=== PATIENT | female | born 1965 | race Caucasian/White ===

== ENCOUNTER 2016-05-31 06:23 | Emergency (ER) | payer BC ==
[2016-05-31 06:34] VITALS: BP 134/83
--- NOTE | 2016-05-31 07:07 | ED ---
Upper Extremity Pain - HPI Summary HPI Summary: Patient presents after slipping on the last few carpeted stairs in her home, and catching herself on an outstretched right hand. She had immediate pain in the wrist and forearm. She took Naproxen with mild relief. She denies previous injury to this extremity. No N/T, bruising or obvious deformity. Her pain is worst with pronation and supination. - History of Current Complaint Chief Complaint: EDExtremityUpper Stated Complaint: FALL/RIGHT ARM PAIN Time Seen by Provider: 05/31/16 06:42 Hx Obtained From: Patient, Family/Senior Gl Accountant Hx Last Menstrual Period: 01/16/2013 Mechanism Of Injury: Fall From A Standing Position Onset/Duration: Started Hours Ago - 1 Timing: Constant Severity Initially: Severe Severity Currently: Severe Pain Location: Forearm Character: Sharp, Aching Aggravating Factor(s): Movement Alleviating Factor(s): Rest Associated Signs & Symptoms: Positive: Negative Related History: Dominant Hand Right - Allergies/Home Medications Allergies/Adverse Reactions: Allergies Allergy/AdvReac Type Severity Reaction Status Date / Time Gluten Meal Allergy See Comment Verified 04/05/16 14:54 Wheat Extract Allergy See Comment Verified 04/05/16 14:54 MOLD Allergy Intermediate Eyes Uncoded 04/05/16 14:54 Itchy/Swollen/Red/Watery PMH/Surg Hx/FS Hx/Imm Hx Endocrine/Hematology History: Denies: Hx Diabetes, Hx Thyroid Disease, Hx Anemia Cardiovascular History: Reports: Hx Hypertension - ON MEDICATION Denies: Hx Hypercholesterolemia, Hx Pacemaker/ICD, Other Cardiovascular Problems/Disorders Respiratory History: Reports: Hx Asthma - MILD ASTHMA RELATED ENVIRONMENTAL ALLERGY Denies: Hx Chronic Obstructive Pulmonary Disease (COPD), Other Respiratory Problems/Disorders GI History: Reports: Hx Irritable Bowel - IN THE PAST - OK WITH DIET, Other GI Disorders - CELIAC DISEASE Denies: Hx Ulcer History: Denies: Hx Dialysis, Hx Renal Disease Musculoskeletal History: Reports: Other Musculoskeletal History - INJURY TO SHOULDER, POSSIBLE ROTATOR CUFF TEAR- STATES WAS TREATED WITH PT Denies: Hx Osteoporosis, Hx Tendonitis Sensory History: Reports: Hx Contacts or Glasses - GLASSES Denies: Hx Hearing Aid Opthamlomology History: Reports: Hx Contacts or Glasses - GLASSES Neurological History: Reports: Hx Headaches - TENSION AND SINUS HEADACHES, Hx Migraine - OK AFTER DIET CHANGE Denies: Other Neuro Impairments/Disorders Psychiatric History: Reports: Hx Anxiety - ON MEDICATION FOR, Hx Depression - ON MEDICATION FOR Denies: Hx Panic Disorder - UNUSUAL CURRENT BEHAVIOR - Cancer History Cancer Type, Location and Year: LEFT BREAST CA (TREATED WITH LUMPECTOMY AND LYMPH NODE REMOVAL, CHEMO AND RADIATION) Hx Chemotherapy: No Hx Radiation Therapy: No - Surgical History Surgery Procedure, Year, and Place: scheduled for umbilical hernia repair [place] teeth removal, TONSILLECTOMY, breast CA, Left lymph nodes removed, LUMPECTOMYS [facility], [facility] Hx Anesthesia Reactions: No Infectious Disease History: No Infectious Disease History: Reports: Hx Shingles Denies: Hx Clostridium Difficile, Hx Hepatitis, Hx Human Immunodeficiency Virus (HIV), Hx Tuberculosis, Hx Known/Suspected VRE, Hx Known/Suspected VRSA, History Other Infectious Disease, Traveled Outside the in Last 30 Days - Family History Known Family History: Positive: Cardiac Disease - Social History Occupation: Employed Full-time Lives: With Family Alcohol Use: Occasionally Alcohol Amount: 1 GLASS OF WINE DAILY Substance Use Type: Reports: None Smoking Status (MU): Never Smoked Tobacco Have You Smoked in the Last Year: No Review of Systems Positive: Myalgia, Decreased ROM Negative: Bruising Negative: Paresthesia, Numbness All Other Systems Reviewed And Are Negative: Yes Physical Exam Triage Information Reviewed: Yes Vital Signs On Initial Exam: Initial Vitals Temp Pulse Resp BP Pulse Ox 97.3 F 114 20 134/83 97 05/31/16 06:28 05/31/16 06:28 05/31/16 06:28 05/31/16 06:28 05/31/16 06:28 Vital Signs Reviewed: Yes Appearance: Positive: Well-Appearing, Well-Nourished, Pain Distress Skin: Positive: Warm, Skin Color Reflects Adequate Perfusion, Dry, Soft Head/Face: Positive: Normal Head/Face Inspection Eyes: Positive: EOMI, LOWELL, Conjunctiva Clear ENT: Positive: Hearing grossly normal Respiratory/Lung Sounds: Positive: Breath Sounds Present Cardiovascular: Positive: RRR - on exam Musculoskeletal: Positive: Limited @ - pronation and supination are limited to a 40 degree arc; extension to 30, flexion to 90, Pain @ - TTP dorsum of right forearm, Edema Right - mild Neurological: Positive: Sensory/Motor Intact, Alert, Oriented to Person Place, Time, NV Bundle Intact Distally Psychiatric: Positive: Affect/Mood Appropriate AVPU Assessment: Alert Diagnostics - Vital Signs Vital Signs Temp Pulse Resp BP Pulse Ox 05/31/16 06:28 97.3 F 114 20 134/83 97 - Laboratory Lab Statement: Any lab studies that have been ordered have been reviewed, and results considered in the medical decision making process. - Radiology No standard instances Xray Interpretation: Positive (See Comments) Radiology Interpretation Completed By: ED Physician - Non-displaced mildly impacted right radial head fracture Course/Dx - Diagnoses Differential Diagnosis/HQI/PQRI: Positive: Arthritis, Bursitis, Contusion, Fracture (Closed), Hematoma, Strain, Sprain Provider Diagnoses: Right radial head fracture Discharge - Discharge Plan Condition: Stable Disposition: HOME Patient Education Materials: Arm Fracture in Adults (ED) Referrals: Roseanne Sahu MD [Primary Care Provider] - Sharona Richardson MD [Medical Doctor] - Additional Instructions: Please wear your sling at all times, except to shower or change clothes. Use your Naproxen daily to decrease swelling and pain, in combination with your regular pain medication. Call Dr. Richardson's office on Thursday for an appointment for evaluation. Return to the emergency department if your symptoms worsen.
--- NOTE | 2016-05-31 09:21 | RAD ---
INDICATION: Pain at the RIGHT wrist and elbow post fall. COMPARISON: None. TECHNIQUE: AP, lateral, and oblique views RIGHT wrist. REPORT AND IMPRESSION: Normal articular alignment. No cortical disruption or suspicious trabecular irregularity to suggest fracture. Mild nonfocal soft tissue swelling.
--- NOTE | 2016-05-31 09:34 | RAD ---
INDICATION: Pain at the RIGHT wrist and elbow post fall. COMPARISON: None. TECHNIQUE: AP, lateral, and oblique views RIGHT elbow. REPORT: Anterior fat pad displacement indicating effusion. Minimally impacted intra-articular fracture at the radial head neck junction. Negative for additional fracture. Normal articular alignment. Mild dorsal soft tissue swelling. IMPRESSION: Minimally impacted fracture at the radial head neck junction with associated joint effusion.
== END 2016-05-31 07:51 | disposition home or self-care (01) ==
LOC: ED 06:23
DX: S52.121A Displaced fracture of head of right radius, initial encounter for closed fracture (principal); W01.0XXA Fall on same level from slipping, tripping and stumbling without subsequent striking against object, initial encounter; Y92.009 Unspecified place in unspecified non-institutional (private) residence as the place of occurrence of the external cause; I10 Essential (primary) hypertension; J45.909 Unspecified asthma, uncomplicated; F41.9 Anxiety disorder, unspecified; F32.9 Major depressive disorder, single episode, unspecified
CPT/HCPCS: 99282

== ENCOUNTER 2018-02-24 11:25 | Emergency (ER) | payer BC ==
[2018-02-24 11:57] VITALS: BP 154/103
--- NOTE | 2018-02-24 12:42 | UC ---
Lower Extremity/Ankle HPI - HPI Summary HPI Summary: 52 y/o female presents to the urgent care c/o Rt ankle pain since december incident when she initially injured after tripping on a fan has not been seen by md - History of Current Complaint Chief Complaint: UCLowerExtremity Stated Complaint: ANKLE PAIN Time Seen by Provider: 02/24/18 12:34 Hx Obtained From: Patient Hx Last Menstrual Period: tomix ?: No Onset/Duration: Sudden Onset, Lasting Weeks - since december, Still Present, Worse Since - 2 weeks w/ swelling Severity Initially: Mild Severity Currently: Moderate Pain Intensity: 6 Pain Scale Used: 0-10 Numeric Aggravating Factor(s): Standing, Ambulation Alleviating Factor(s): Rest, Elevation, OTC Meds Able to Bear Weight: Yes - Risk Factors Gout Risk Factors: Negative DVT Risk Factors: Negative Septic Arthritis Risk Factor: Negative - Allergies/Home Medications Allergies/Adverse Reactions: Allergies Allergy/AdvReac Type Severity Reaction Status Date / Time gluten Allergy Intermediate GI Upset Verified 02/24/18 12:05 wheat Allergy Intermediate GI Upset Verified 02/24/18 12:05 MOLD Allergy Intermediate Eyes Uncoded 02/24/18 12:05 Itchy/Swollen/Red/Watery Home Medications: Home Medications Calcium Carbonate [Calcium] 500 mg PO BID 02/24/18 [History Confirmed 02/24/18] Ibuprofen 400 mg PO DAILY 02/24/18 [History Confirmed 02/24/18] Omeprazole CAP(NF) [PriLOSEC CAP(NF)] 1 tab PO DAILY PRN 02/24/18 [History Confirmed 02/24/18] PMH/Surg Hx/FS Hx/Imm Hx - Surgical History Surgical History: Yes Surgery Procedure, Year, and Place: scheduled for umbilical hernia repair [place] teeth removal, TONSILLECTOMY, breast CA, Left lymph nodes removed, LUMPECTOMYS [facility], [facility] - Family History Known Family History: Positive: Cardiac Disease - Social History Alcohol Use: Occasionally Alcohol Amount: 1 GLASS OF WINE DAILY Substance Use Type: None Smoking Status (MU): Never Smoked Tobacco Have You Smoked in the Last Year: No Physical Exam - Summary Physical Exam Summary: Vital Signs Reviewed: Yes General: well developed, well nourished female, sitting in the examining table w /o any apparent distress Eyes: Positive: Conjunctiva Clear - PERRLA, EOMI, ENT: Positive: Normal ENT inspection, Hearing grossly normal, Pharynx normal, TMs normal Neck: Positive: Supple, Nontender, No Lymphadenopathy Respiratory: Positive: Chest non-tender, Lungs clear, Normal breath sounds, No respiratory distress Cardiovascular: Positive: RRR, No Murmur, Pulses Normal, Brisk Capillary Refill Abdomen Description: Positive: Nontender, No Organomegaly, Soft. Negative: CVA Tenderness (R), CVA Tenderness (L) Bowel Sounds: Positive: Present Musculoskeletal: - Ankle: Pt is able to bear weight and ambulate w/ limping. The R ankle is without obvious asymmetry or deformity when compared to the L ankle. Decreased ROM due to pain. Moderate swelling at the lateral malleolus, with tenderness to palpation. No ecchymosis or bruising observed. Tenderness to palpation over the medial malleolus , no swelling observed. Talar tilt test is negative for ligament laxity to valgus or varus stress. Negative anterior drawer. Peroneal nerve is intact with strong eversion and plantar flexion. Positive sensation over the Rt foot and Rt ankle, positive pulses, capillary refill intact Neurological Exam: Normal Psychological Exam: Normal Skin: warm and dry Triage Information Reviewed: Yes Vital Signs: Initial Vital Signs Temp 98 F 02/24/18 11:54 Pulse 100 02/24/18 11:54 Resp 20 02/24/18 11:54 BP 154/103 02/24/18 11:54 Pulse Ox 100 02/24/18 11:54 Lower Extremity Course/Dx - Differential Dx/Diagnosis Differential Diagnosis/HQI/PQRI: Contusion, Fracture (Closed), Gout, Sprain, Strain, Tendonitis Provider Diagnoses: 1- Rt ankle pain and swelling s/p injury. 2- RT ankle sprain. 3- Uncontrolled HTN Discharge - Sign-Out/Discharge Documenting (check all that apply): Patient Departure - D/c home All imaging exams completed and their final reports reviewed: Yes - Discharge Plan Condition: Stable Disposition: HOME Patient Education Materials: Ankle Sprain (ED), Low-Sodium Diet (ED) Referrals: Raphael Karimi MD [Medical Doctor] - 1 Week Roseanne Sahu MD [Primary Care Provider] - 1 Week Additional Instructions: 1-Please continue taking Ibuprofen 600mg PO q6-8hrs prn -and Gabapentin PO you have at home as directed to alleviate pain and swelling. 2-Please elevated you ankle apply, keep your ankle immobilized with the CAM boot . Avoid standing for long periods of time or strenuous exercise 3- Please f/u with Orthopedic Dr Karimi or your PCP in 1 week is not improvement of symptoms for further evaluation and treatment. 4-Your BP is elevated today. please decrease salt in your diet, monitor BP and if it continues to be elevated please f/u with your PCP for further management - Billing Disposition and Condition Condition: STABLE Disposition: Home
--- NOTE | 2018-02-24 13:18 | RAD ---
HISTORY: RT ankle pain s/p inury COMPARISONS: None VIEWS: 3 , Frontal, lateral, and oblique views of the right ankle FINDINGS: BONE DENSITY: Normal. BONES: There is no displaced fracture. JOINTS: There is no arthropathy. ALIGNMENT: There is no dislocation. SOFT TISSUES: There is circumferential soft tissue swelling. OTHER FINDINGS: None. IMPRESSION: SOFT TISSUE SWELLING. NO ACUTE OSSEOUS INJURY. IF SYMPTOMS PERSIST, RECOMMEND REPEAT IMAGING.
== END 2018-02-24 13:37 | disposition home or self-care (01) ==
LOC: UCEAST 11:25
DX: S93.401A Sprain of unspecified ligament of right ankle, initial encounter (principal); W22.8XXA Striking against or struck by other objects, initial encounter; Y92.9 Unspecified place or not applicable; I10 Essential (primary) hypertension
CPT/HCPCS: 99212; G0463

== ENCOUNTER 2018-06-02 16:02 | Emergency (ER) | payer BC ==
[2018-06-02 16:24] VITALS: BP 124/83
--- NOTE | 2018-06-02 16:33 | UC ---
Complaint Female HPI - HPI Summary HPI Summary: 6 DAYS OF DYSURIA, FREQUENCY AND URGENCY. HAS SOME MILD LOW BACK PAIN BUT NO FEVER OR NAUSEA. - History Of Current Complaint Chief Complaint: UCGU Stated Complaint: POSS UTI Time Seen by Provider: 06/02/18 16:20 Hx Obtained From: Patient Hx Last Menstrual Period: tomix Onset/Duration: Gradual Onset, Lasting Days, Still Present Severity Initially: Moderate Severity Currently: Moderate Pain Intensity: 4 Pain Scale Used: 0-10 Numeric Character: Burning Aggravating Factor(s): Urination Alleviating Factor(s): Nothing Associated Signs And Symptoms: Positive: Back Pain. Negative: Fever, Vaginal Bleeding/Discharge, Nausea - Allergies/Home Medications Allergies/Adverse Reactions: Allergies Allergy/AdvReac Type Severity Reaction Status Date / Time gluten Allergy Intermediate GI Upset Verified 06/02/18 16:15 wheat Allergy Intermediate GI Upset Verified 06/02/18 16:15 MOLD Allergy Intermediate Eyes Uncoded 06/02/18 16:15 Itchy/Swollen/Red/Watery PMH/Surg Hx/FS Hx/Imm Hx Cardiovascular History: Hypertension Respiratory History: Asthma Cancer History: Breast Cancer - Surgical History Surgical History: Yes Surgery Procedure, Year, and Place: scheduled for umbilical hernia repair [place] teeth removal, TONSILLECTOMY, breast CA, Left lymph nodes removed, LUMPECTOMYS [facility], [facility] - Family History Known Family History: Positive: Cardiac Disease - Social History Alcohol Use: Weekly Alcohol Amount: 1 GLASS OF WINE DAILY Substance Use Type: None Smoking Status (MU): Never Smoked Tobacco Have You Smoked in the Last Year: No Review of Systems All Other Systems Reviewed And Are Negative: Yes Constitutional: Positive: Negative Respiratory: Positive: Negative Cardiovascular: Positive: Negative Gastrointestinal: Positive: Negative Genitourinary: Positive: Dysuria, Frequency, Urgency, Other - LOW BACK PAIN Physical Exam Triage Information Reviewed: Yes Appearance: Well-Appearing, No Pain Distress, Well-Nourished Vital Signs: Initial Vital Signs Temp 96.9 F 06/02/18 16:17 Pulse 108 06/02/18 16:17 Resp 18 06/02/18 16:17 BP 124/83 06/02/18 16:17 Pulse Ox 99 06/02/18 16:17 Laboratory Tests 06/02/18 16:30 POC Urine Color Yellow POC Urine Clarity Slightly cloudy POC Urine pH 6.0 POC Ur Specif [place] 1.020 POC Urine Protein Negative POC Ur Glucose (UA) Negative POC Urine Ketones Negative POC Urine Blood Negative POC Urine Nitrite Negative POC Urine Bilirubin Negative POC Urine Urobilinogen 0.2 POC U Leukocyte Esteras 2+ A Vital Signs Reviewed: Yes Eyes: Positive: Conjunctiva Clear ENT: Positive: Hearing grossly normal Neck: Positive: Supple Respiratory: Positive: No respiratory distress, No accessory muscle use Cardiovascular: Positive: Pulses Normal Abdomen Description: Positive: Soft, Other: - MILD SUPRAPUBIC TENDERNESS. Negative: CVA Tenderness (R), CVA Tenderness (L), Distended, Guarding Musculoskeletal: Positive: No Edema Neurological: Positive: Alert Psychological: Positive: Age Appropriate Behavior Skin: Negative: Rashes Complaint Female Dx - Differential Dx/Diagnosis Provider Diagnosis: UTI (urinary tract infection) Discharge - Sign-Out/Discharge Documenting (check all that apply): Patient Departure All imaging exams completed and their final reports reviewed: No Studies - Discharge Plan Condition: Stable Disposition: HOME Prescriptions: Sulfamethox/Trimethoprim DS* [Bactrim DS 800/160 TAB*] 1 tab PO BID #10 tab Patient Education Materials: Urinary Tract Infection in Women (ED) Referrals: Roseanne Sahu MD [Primary Care Provider] - If Needed - Billing Disposition and Condition Condition: STABLE Disposition: Home
== END 2018-06-02 17:00 | disposition home or self-care (01) ==
LOC: UCEAST 16:02
DX: N39.0 Urinary tract infection, site not specified (principal); M54.5 Low back pain; I10 Essential (primary) hypertension; J45.909 Unspecified asthma, uncomplicated; Z91.018 Allergy to other foods; Z91.09 Other allergy status, other than to drugs and biological substances
CPT/HCPCS: 81003; 87086; 99212; G0463